=== PATIENT | female | born 1960 | race Caucasian/White ===

== ENCOUNTER 2017-02-13 13:27 | Emergency (ER) | payer BC | END 2017-02-13 15:35 | disposition home or self-care (01) | DX: G40.909 Epilepsy, unspecified, not intractable, without status epilepticus (principal); R31.9 Hematuria, unspecified; F17.210 Nicotine dependence, cigarettes, uncomplicated; Z90.49 Acquired absence of other specified parts of digestive tract; Z98.890 Other specified postprocedural states; Z79.899 Other long term (current) drug therapy ==